=== PATIENT | female | born 1990 | race Caucasian/White ===

== ENCOUNTER 2020-09-27 16:15 | Emergency (ER) | payer OTHER, SELFPAY ==
[2020-09-27 16:20] VITALS: BP 141/83; PULSE 82; RESP 14; TEMP 36.4; O2SAT 100
[2020-09-27 16:34] VITALS: BP 141/83; PULSE 82; RESP 14; TEMP 36.4; O2SAT 100
--- NOTE | 2020-09-27 16:57 | ED.URI ---
HPI - URI/Sore Throat General Chief Complaint: Upper Respiratory Infection Stated Complaint: headache congestion Source: patient Mode of arrival: ambulatory Limitations: no limitations History of Present Illness HPI Narrative: Patient is a 29-year-old female who presents complaining of bilateral ear pain, sore throat, congestion, rhinorrhea x3 days. She reports recent travel out of state and just returned home. She denies fever, chest pain, nausea, vomiting or diarrhea. She denies known exposure to Covid. She denies taking [id number] medications at this time. Patient denies significant medical history. MD elicited complaint: other (Ear pain) Related Data Allergies Allergy/AdvReac Type Severity Reaction Status Date / Time No Known Allergies Allergy Mild Verified 09/27/20 16:33 Review of Systems Review of Systems: Narrative: CONSTITUTIONAL: Denies fever, chills, or sweats. EYES: Denies visual changes, redness, or discharge. ENT: Reports rhinorrhea, congestion, sore throat, and bilateral otalgia. CARDIOVASCULAR: Denies chest pain, palpitations, or edema. RESPIRATORY: Denies cough or dyspnea. GASTROINTESTINAL: Denies abdominal pain, nausea, vomiting, or diarrhea. GENITOURINARY: Denies dysuria or hematuria. SKIN: Denies rash or itching. MUSCULOSKELETAL: Denies back pain, joint pain, or myalgia. NEUROLOGIC: Denies headache, numbness, dizziness, or weakness. PSYCHIATRIC: Denies anxiety or depression. FORMERLY [facility] Past Medical History Medical History Migraine Polymyalgia Positive ROCK (antinuclear antibody) Surgical History Surgical History Delivery by section Family History Family History (Updated 09/27/20 @ 17:05 by BRANDY Sheth) Other No significant family history Social History Social History (Updated 09/27/20 @ 17:06 by BRANDY Sheth) Smoking status: Never smoker Second hand tobacco smoke exposure: Yes Alcohol intake: current Substance use: never Living arrangements: with family Gender identity (if verbalized by the patient): Female Comments At the time of signature, I have reviewed and agree with nursing past medical, surgical, social, and family history unless otherwise noted. Please see nursing chart for further information. There is no relevant family history pertinent to the presenting complaint. Exam Narrative: Exam Narrative: GENERAL: Well-appearing, well-nourished, and in no acute distress. HEAD: Normocephalic, atraumatic. EYES: EOMI. No redness or drainage. Conjunctiva are normal. ENT: Mucous membranes pink and moist. Nares clear. Positive rhinorrhea. Left TMs normal. Right TM injected, bulging and cloudy. Throat normal. Uvula midline. NECK: AROM. Supple. No lymphadenopathy. CHEST: No respiratory distress. Clear to auscultation. HEART: Regular rate and rhythm. EXTREMITIES: Normal range of motion. No edema. SKIN: Warm, dry, no rash. NEURO: No focal deficits. Alert and oriented x3. Gait steady. PSYCH: Normal affect. No signs of depression or anxiety. Course Vital Signs Vital signs: Vital Signs Temperature 36.4 C 09/27/20 16:20 Pulse Rate 82 09/27/20 16:20 Respiratory Rate 14 09/27/20 16:20 Blood Pressure 141/83 H 09/27/20 16:20 Pulse Oximetry 100 09/27/20 16:20 Temperature 36.4 C 09/27/20 16:34 Pulse Rate 82 09/27/20 16:34 Respiratory Rate 14 09/27/20 16:34 Blood Pressure 141/83 H 09/27/20 16:34 Pulse Oximetry 100 09/27/20 16:34 Reviewed. Patient has been instructed to follow-up with his PCP regarding his blood pressure. MDM - URI/Sore Throat MDM Narrative Medical decision making narrative: Patient's rapid Covid is negative at this time PCR sent to lab, patient aware of need for quarantine until results received. Patient also has right otitis media and most likely viral infection. Patient to be
[2020-09-28 01:17] LABS: SARS-CoV-2 RNA PCR Negative
== END 2020-09-27 17:03 | disposition home or self-care (01) ==
PROVIDERS: Emergency Provider Nurse Practitioner; PCP Internal Medicine
DX: J06.9 Acute upper respiratory infection, unspecified (principal); H66.001 Acute suppurative otitis media without spontaneous rupture of ear drum, right ear; Z20.822 Contact with and (suspected) exposure to COVID-19
CPT/HCPCS: 87426; 99213; C9803; G0463; U0003; U0005

== ENCOUNTER → 2021-02-01 00:51 | Outpatient (CLI) | payer OTHER, SELFPAY ==
[2021-02-01 16:45] LABS: SARS-CoV-2 RNA PCR Negative
== END ==
PROVIDERS: PCP Internal Medicine; Visit Provider Obstetrics & Gynecology
DX: Z01.812 Encounter for preprocedural laboratory examination (principal); Z20.822 Contact with and (suspected) exposure to COVID-19
CPT/HCPCS: C9803; U0003; U0005

== ENCOUNTER 2021-02-05 02:05 | Day surgery (SDC) | payer OTHER, SELFPAY ==
[2021-01-30 15:13] VITALS: BMI 38.3
[2021-02-05 12:00] VITALS: BP 145/89; PULSE 99; RESP 16; TEMP 36.6; O2SAT 100
--- NOTE | 2021-02-05 12:09 | PM.IMHP ---
H&P: HPI History of Present Illness Date/Time: 02/05/21 12:09 29 y/o who has liked her IUD. The IUD strings were unable to be grasped in the office at the time of IUD exchange, though. US confirms placement in the endometrial cavity. She is here for hysteroscopy, IUD removal and placement of a fresh Mirena. Chief Complaint: IUD removal Review of Systems Review of Systems: All systems reviewed & are unremarkable except as noted in HPI and below PMFSH Past Medical History Medical History Migraine Polymyalgia Positive ROCK (antinuclear antibody) Surgical History Surgical History Delivery by section Family History Family History Other No significant family history Social History Social History Smoking status: Never smoker Second hand tobacco smoke exposure: Yes Alcohol intake: current Substance use: current Substance use type: marijuana Other substance usage details: OCCASIONALLY Living arrangements: with family Gender identity (if verbalized by the patient): Female Spiritual care concerns: No Meds Home Medications and Allergies Home Medications Medication Instructions Recorded Confirmed Type naproxen 500 mg tablet 500 mg PO BID PRN #60 tablet 12/19/20 01/30/21 Rx Allergies Allergy/AdvReac Type Severity Reaction Status Date / Time No Known Allergies Allergy Mild Verified 02/05/21 12:11 Exam Const: Orientation/consciousness: patient oriented x3 Other: Well-developed, well-nourished female in no acute distress. Neck: Thyroid: thyroid normal Lymphatic: no lymphadenopathy noted (in neck, axilla or inguinal nodes) Resp: Effort & Inspection: normal respiratory effort Auscultation: clear to auscultation bilaterally Cardio: Rate: regular rate Rhythm: regular rhythm Heart sounds: S1 normal heart sound present and S2 normal heart sound present GI: Other: ABD: Soft, nontender, nondistended. No guarding or rebound tenderness. No hepatosplenomegaly. : General: Yes no CVA tenderness Other: External genitalia: normal female hair distribution, without lesion. Urethral meatus: no lesion, non prolapsed. Bladder: no mass, nontender Vagina: well-estrogenized, without lesion or discharge. No cystocele or rectocele. Cervix: no lesion or discharge. Uterus: small, anteverted, freely mobile, nontender Adnexa: no mass or tenderness. Anus/perineum: no lesions, nontender Back/Spine/Pelvis: Back: no CVA tenderness Skin: General skin exam: normal color and no rashes or lesions noted Neuro: General: patient oriented x3 Extrem: Other: Extremities: nontender with no edema Psych: Mental Status: mental status grossly normal Affect: normal affect Assessment and Plan Assessment and plan (1) IUD strings lost: Code(s): T83.32XA - Displacement of intrauterine contraceptive device, initial encounter Status: Acute (2) Contraception, device intrauterine: Code(s): Z97.5 - Presence of (intrauterine) contraceptive device Status: Acute Assessment and Plan: A: Contraception. P: She would like a replacement IUD. I have offered dilation of cervix, hysteroscopy, removal of IUD, placement of new Mirena IUD. She understands risks of surgery to include risks of anesthesia, risks of pain, infection, bleeding, blood products, thromboembolic phenomena and damage to adjacent structures such as bowel, bladder, ureters, blood vessels and nerves. She understands all these risks and elects to proceed with surgery.
--- NOTE | 2021-02-05 12:10 | SUR.PREOP ---
1210- Notified Dr. Reed patient voiced concerns of having a urinary tract infection with abdominal pain and lower back pain with cramping. Per Dr. Reed place order for UA with reflex culture and send urine specimen.
--- NOTE | 2021-02-05 12:16 | WPDANESEPPF ---
Anes - Initial Pre Proc Eval Procedure: Operation Date: 02/05/21 14:00 Proposed Procedures p Hysteroscopy ,Removal and Replacement Intrauterine Device - Anil Reed MD Date/Time: 02/05/21 12:16 Surgeon: Anil Reed MD Pre Op Diagnosis: misplaced IUD Patient Data Age: 30 Gender: F Height: 1.65 m Weight: 104.5 kg Last Vital Signs Temp 97.8 F 02/05/21 12:00 Pulse 99 02/05/21 12:00 Resp 16 02/05/21 12:00 BP 145/89 H 02/05/21 12:00 Pulse Ox 100 02/05/21 12:00 Allergies Allergy/AdvReac Type Severity Reaction Status Date / Time No Known Allergies Allergy Mild Verified 02/05/21 12:11 Home Medications Medication Instructions Recorded Confirmed Type naproxen 500 mg tablet 500 mg PO BID PRN #60 tablet 12/19/20 01/30/21 Rx Patient hx anesthesia problems: none Family hx anesthesia problems: none PMFSH Past Medical History Medical History Migraine Polymyalgia Positive ROCK (antinuclear antibody) Surgical History Surgical History Delivery by section Family History Family History Other No significant family history Social History Social History Smoking status: Never smoker Second hand tobacco smoke exposure: Yes Alcohol intake: current Substance use: current Substance use type: marijuana Other substance usage details: OCCASIONALLY Living arrangements: with family Gender identity (if verbalized by the patient): Female Spiritual care concerns: No Anes - Eval Final PreProcedure Day of Procedure 02/05/21 12:16 Patient weight: obese Lungs: clear to auscultation Airway: Mallampati scale class II Neurological: alert and oriented Last oral intake: >/= 8 hours ASA classification: II Emergent: no Anesthetic plan: proceed Anesthesia type and monitoring: general GIVS and standard monitoring Informed Consent: The patient's anesthetic plan and its attendant risks and benefits were discussed with the patient/family/POA. Questions were solicited and answers provided to the satisfaction of the patient/family/POA.
[2021-02-05] MEDS: ACETAMINOPHEN 500 MG TABLET 1000 MG PO (12:17)
[2021-02-05 12:20] VITALS: BMI 39.2
--- NOTE | 2021-02-05 12:20 | WPDHPUPDATE1 ---
History and Physical Update Update Date/Time: 02/05/21 12:20 History and Physical has been reviewed, including an updated exam of the patient. There are NO changes in the patient's condition. Risks, benefits, and alternatives have been discussed and questions answered. Patient agrees to proceed with procedure.
[2021-02-05] MEDS: LACTATED RINGERS 1,000 ML 30 ML IV CONT (12:25)
[2021-02-05 12:46] LABS: Add Urine Microscopic? YES; Appearance Urine Clear (Clear); Bilirubin Urine Negative (Negative); Blood Urine Negative (Negative); Color Urine Straw (Yellow); Glucose Urine UA Negative (Negative); Ketones Urine Negative (Negative); Leukocyte Esterase Ur Negative LEU/UL (Negative); Mucus Urine Rare /lpf; Nitrate Urine Negative (Negative); Protein Urine 1+ mg/dL (Negative); Specific Grav Ur 1.006 (1.001-1.035); Squamous Epithelial Cell Urine Occasional /hpf (Few); Urobilinogen Urine Negative mg/dL (<2.0); WBC Urine 0-3 /hpf
[2021-02-05] MEDS: LIDOCAINE HCL 1% LOCAL INJ 20 ML VIAL 50 ML INFILTRATE (13:58)
[2021-02-05] MEDS: KETOROLAC 30 MG/ML VIAL (*BKC) IV PUSH (14:03)
--- NOTE | 2021-02-05 14:06 | W.PM.PROC2 ---
Procedure Note - Detailed Date of Procedure 02/05/21 Pre-op Diagnosis Lost IUD strings Post-op Diagnosis same Procedure Performed Dilation of cervix Hysteroscopy Removal of IUD Insertion of Mirena Surgeon Anil Reed MD Anesthesia MAC and local (1% lidocaine) Findings IUD in endometrial cavity. Strings were flexed back along the body of the IUD. Both tubal ostia were seen. The endometrial cavity was unremarkable. Description of Procedure The patient was taken to the operating room where she was prepared and draped in the usual sterile fashion in the dorsal lithotomy position. A sterile speculum was placed into the vagina. The anterior lip of the cervix was grasped with single-tooth tenaculum. Ten mL of 1% lidocaine was administered in a paracervical block. The cervix was then gently dilated using Hegar dilators until a 7 mm dilator could be passed. Hysteroscopy was performed using sterile saline as a distention medium. Findings are as noted above. The IUD was grasped with a polyp forceps, easily removed, intact, and discarded. A fresh Mirena introducer was loaded. It was advanced into the endometrial cavity, sounding the uterus to 9 cm. The introducer was withdrawn 1.5 cm and the IUD arms were deployed. The IUD was then gently nestled into the fundal position. The introducer was withdrawn and the tenaculum was removed. The strings were trimmed to a length of about 3 cm. Hemostasis was excellent. Sponge, lap, needle and instrument counts were correct. The patient was awakened and taken to the recovery room in stable condition. I was present and scrubbed through the entire procedure. Implants Mirena IUD Estimated Blood Loss 5 Drains No Packing No Pathology none sent Complications None Condition stable Disposition PACU
[2021-02-05 14:07] VITALS: BP 123/73; PULSE 91; RESP 16; O2SAT 95
[2021-02-05] MEDS: fentaNYL CITRATE INJ (*CRX) 100 MCG/2 ML VIAL 25 MCG IV PUSH (14:31)
[2021-02-05 14:37] VITALS: BP 150/99; PULSE 87; RESP 16
[2021-02-05 15:07] VITALS: BP 150/99; PULSE 82; RESP 16
[2021-02-05 15:10] VITALS: BP 126/87; PULSE 70; RESP 16
[2021-02-05] MEDS: oxyCODONE HCL (*CRX) 5 MG TAB IR PO (15:15)
--- NOTE | 2021-02-06 15:07 | SUR.OPER ---
Mirena Implant. Expires 12/2022.
== END 2021-02-05 15:20 | disposition home or self-care (01) ==
PROVIDERS: PCP Internal Medicine; Visit Provider Obstetrics & Gynecology
PROC: 0U5B8ZZ Destruction of Endometrium, Via Natural or Artificial Opening Endoscopic (ICD-10-PCS; CPT 58563; principal; 2021-02-05 14:00)
DX: T83.32XA Displacement of intrauterine contraceptive device, initial encounter (principal); Y84.8 Other medical procedures as the cause of abnormal reaction of the patient, or of later complication, without mention of misadventure at the time of the procedure; Z30.430 Encounter for insertion of intrauterine contraceptive device; M35.3 Polymyalgia rheumatica; F12.90 Cannabis use, unspecified, uncomplicated; E66.9 Obesity, unspecified; Z68.39 Body mass index [BMI] 39.0-39.9, adult
CPT/HCPCS: 58562; 58300; 81001; A9270; C9803; J1885; J2250; J2704; J3010; J7120; U0003; U0005